=== PATIENT | female | born 1990 | race Caucasian/White ===

== ENCOUNTER 2022-02-07 04:25 | Emergency (ER) | payer BC ==
[~2022-02-07] VITALS: Ht 152.4 cm; Wt 95.5 kg
[~2022-02-07 04:25] MED LIST: ABILIFY5 MG PO; ALEVE 220MG220 MG PO; ANXIETY MED. PO; FASTIN30 MG PO; ORAL CONTRACEPTIVE PO; PRILOSEC 20MG20 MG PO; PROZAC 20MG20 MG PO; SIMPLY SLEEP PO; SPIRONOLACTONE PO
[2022-02-07 04:42] VITALS: BP 132/92; TEMP 98.1
[2022-02-07 06:08] LABS: COLLECTION METHOD CLEAN CATCH
[2022-02-07 06:19] LABS: BASO % 0.4 % (0.0-2.0); EOS # 0.4 K/mm3 (0.0-0.7); EOS % 3.7 % (0.0-4.0); GRAN # 5.5 K/mm3 (1.4-6.5); GRAN % 54.2 % (42.2-75.2); HEMATOCRIT 39.8 % (37.0-47.0); HEMOGLOBIN 13.3 g/dl (12.5-16.0); LYMPH # 3.7 K/mm3 (1.2-3.4); LYMPH % 36.4 % (20.0-51.0); MEAN CELL VOLUME 83 fl (80.0-100.0); MEAN CORPUSCULAR HEMOGLOBIN 28 pg (27-31); MEAN CORPUSCULAR HGB CONC 33 g/dl (33.0-37.0); MEAN PLATELET VOLUME 9.5 fl (7.4-10.4); MONO # 0.5 K/mm3 (0.1-0.6); MONO % 4.9 % (1.7-9.3); PLATELET COUNT 291 K/mm3 (130-400); RED BLOOD COUNT 4.81 M/mm3 (4.10-5.30); REDCELL DISTRIBUTION WIDTH-CV 13.4 % (11.5-14.5)
[2022-02-07 06:29] LABS: MUCOUS Present (NOT PRESENT); URINE BACTERIA None Seen /hpf (NONE SEEN); URINE CALCIUM OXALATE CRYSTAL Present (NOT PRESENT); URINE RBC 20-50 /hpf (0-2)
[2022-02-07 06:39] LABS: ALBUMIN 3.9 gm/dL (3.5-5.0); BILIRUBIN,TOTAL 0.3 mg/dL (0.2-1.2); CALCIUM 9.7 mg/dL (8.4-10.2); CREATININE, serum 0.85 mg/dL (0.57-1.11); POTASSIUM 3.7 mmol/L (3.5-4.5)
[2022-02-07 06:45] LABS: PH 5.5 (5.0-8.5); URINE APPEARANCE Hazy (CLEAR/HAZY); URINE COLOR Yellow (YELLOW); URINE GLUCOSE Negative (NEGATIVE); URINE KETONE Negative (NEGATIVE); URINE PROTEIN(semi-quant) 1+ (NEGATIVE)
[2022-02-07 06:46] LABS: URINE BLOOD 1+ (NEGATIVE); URINE NITRATE Negative (NEGATIVE)
[2022-02-07] MEDS ORDERED: ROXICODONE 55 MG/TAB PO (07:19)
[2022-02-07] MEDS ORDERED: ZOFRAN 4MG T4 MG/TAB PO (07:19)
[2022-02-07] MEDS ORDERED: FLOMAX 0.40.4 MG/CAP PO (07:19)
[2022-02-07 07:45] VITALS: PULSE 78
== END 2022-02-07 07:51 | disposition home or self-care (01) ==
LOC: COL.ER 04:25
PROVIDERS: Emergency Medicine
DX: N13.2 Hydronephrosis with renal and ureteral calculous obstruction (principal); R00.0 Tachycardia, unspecified; F17.200 Nicotine dependence, unspecified, uncomplicated; Z32.02 Encounter for pregnancy test, result negative
CPT/HCPCS: J1885; J2405; J3010; J7030

== ENCOUNTER 2023-02-05 13:17 | Emergency (ER) | payer BC ==
[~2023-02-05] VITALS: Ht 152.4 cm; Wt 90.9 kg
[~2023-02-05 13:17] MED LIST changes: +FLOMAX 0.40.4 MG/CAP PO; +ROXICODONE 55 MG/TAB PO; +ZOFRAN 4MG T4 MG/TAB PO
[2023-02-05 15:19] LABS: COLLECTION METHOD CLEAN CATCH
[2023-02-05 15:38] LABS: URINE APPEARANCE Clear (CLEAR/HAZY); URINE BLOOD Negative (NEGATIVE); URINE COLOR Amber (YELLOW); URINE GLUCOSE Negative (NEGATIVE); URINE KETONE 3+ (NEGATIVE); URINE NITRATE Negative (NEGATIVE); URINE PROTEIN(semi-quant) 1+ (NEGATIVE)
[2023-02-05 15:41] LABS: URINE RBC 0-2 /hpf (0-2)
[2023-02-05 15:42] LABS: MUCOUS Present (NOT PRESENT); URINE BACTERIA Rare /hpf (NONE SEEN)
[2023-02-05] MEDS ORDERED: PROMETHAZINE12.5 M5 PO (16:26)
[2023-02-05 16:37] VITALS: BP 115/77; PULSE 89; TEMP 98.4
== END 2023-02-05 16:37 | disposition home or self-care (01) ==
LOC: COL.ER 13:17
PROVIDERS: Physician Assistant
DX: O21.9 Vomiting of pregnancy, unspecified (principal); O26.892 Other specified pregnancy related conditions, second trimester; R10.30 Lower abdominal pain, unspecified; Z87.891 Personal history of nicotine dependence; Z3A.15 15 weeks gestation of pregnancy
CPT/HCPCS: J2765; J7030

== ENCOUNTER 2023-07-08 21:26 | Outpatient (CLI) | payer BC ==
[~2023-07-08] VITALS: Ht 152.4 cm; Wt 100.0 kg
[~2023-07-08 21:26] MED LIST changes: +PROMETHAZINE12.5 M5 PO
--- NOTE | 2023-07-08 21:45 | NUR ---
PT TO UNIT AMBULATORY WITH SPOUSE WITH COMPLAINTS OF CTX EVERY 2-5 MINUTES. PT TAKEN TO ROOM BY Pedrito LAWS RN. PT CHANGED INTO GOWN. THIS NURSE IN ROOM, VS OBTAINED, EFMX2 APPLIED, AMNIOSWAB NEGATIVE AND NO LEAKING OF FLUID VISUALIZED, PT STATES GOOD MOVEMENT. SVE PERFORMED.
[2023-07-08 22:30] VITALS: BP 130/85; PULSE 80; TEMP 97.9
[2023-07-08 23:00] VITALS: BP 135/85; PULSE 67
[2023-07-08] MEDS ORDERED: TAMIFLU30 MG PO (23:00)
[2023-07-08] MEDS ORDERED: LR 1,000 ML IV PRN (23:00)
[2023-07-08] MEDS ORDERED: ATARAX 25MG25 MG/TAB PO (23:02)
[2023-07-08] MEDS ORDERED: PROTONIX20 MG PO (23:03)
[2023-07-08] MEDS ORDERED: BRINTELLIX5 PO (23:03)
[2023-07-08] MEDS ORDERED: TIROSINT50 MC1 PO (23:04)
[2023-07-08] MEDS ORDERED: VITAMIN D31000 I1 PO (23:05)
[2023-07-08] MEDS ORDERED: ASPIRIN 81M81 MG/TA2 PO (23:06)
[2023-07-08] MEDS ORDERED: PRENATAL TABLET PO (23:07)
[2023-07-08] MEDS ORDERED: ZOFRAN 4MG T4 MG/TAB SL (23:08)
[2023-07-08 23:30] VITALS: BP 137/87; PULSE 75
[2023-07-09] VITALS: BP 132/87; PULSE 87
[2023-07-09 00:30] VITALS: BP 137/94; PULSE 72
[2023-07-09 01:00] VITALS: BP 151/86; PULSE 81
[2023-07-09 01:30] VITALS: BP 137/79; PULSE 85
[2023-07-09 02:00] VITALS: BP 130/82; PULSE 89
[2023-07-09 02:22] VITALS: BP 137/80; PULSE 78
--- NOTE | 2023-07-09 02:35 | NUR ---
0222- SVE UNCHANGED FOR 2 HOURS. MONITORING DC'D. PT TO CHANGE INTO OWN CLOTHES WHILE DISCHARGE PAPERWORK PREPARED. 0235- PT INSTRUCTED TO RETURN TO UNIT IF HER CONTRACTIONS BECOME MORE CONSISTENT/PAINFUL, HER WATER BREAKS, OR SHE HAS VAGINA BLEEDING. NOTIFIED THAT SPOTTING MAY OCCUR DUE TO MULTIPLE SVEs WHILE HERE. ENCOURAGED TO PUSH FLUIDS AND NOTIFIED THAT SHE MAY TRY TYLENOL AND BENADRYL PER BOTTLE INSTRUCTIONS FOR PAIN AND SLEEP AID. MAY ALSO TAKE A WARM SHOWER OR BATH. UNDERSTANDING VERBALIZED. PT STATES THAT SHE HAS APPOINTMENT WITH DR. VILLEGAS LATER TODAY 07/09/23 AT 1420. PT ENCOURAGED TO KEEP THIS APPOINTMENT. PT AND SPOUSE OFF UNIT AMBULATORY.
[2023-07-09] MEDS ORDERED: Influenza Virus Vaccine, Quad '23-24 (6 MOS+) 0.5 ML SYRINGE IM SCH (09:00)
== END 2023-07-09 02:35 | disposition home or self-care (01) ==
LOC: LDRO 21:26
DX: O26.893 Other specified pregnancy related conditions, third trimester (principal); E75.5 Other lipid storage disorders; Z3A.37 37 weeks gestation of pregnancy

== ENCOUNTER 2023-07-17 17:01 | Outpatient (CLI) | payer BC ==
[~2023-07-17] VITALS: Ht 152.4 cm; Wt 99.2 kg
[2023-07-17] VITALS (9 sets, daily range): BP systolic 123–136; BP diastolic 75–93; PULSE 75–98
[~2023-07-17 17:01] MED LIST changes: +ASPIRIN 81M81 MG/TA2 PO; +ATARAX 25MG25 MG/TAB PO; +BRINTELLIX5 PO; +PRENATAL TABLET PO; +PROTONIX20 MG PO; +TAMIFLU30 MG PO; +TIROSINT50 MC1 PO; +VITAMIN D31000 I1 PO; +ZOFRAN 4MG T4 MG/TAB SL
[2023-07-17] MEDS ORDERED: LR 1,000 ML IV PRN (17:15)
[2023-07-17] MEDS ORDERED: LR 1,000 ML IV ONE (17:45)
--- NOTE | 2023-07-17 18:43 | NUR ---
6727 INGRID MUNOZ UPDATED ON PT ARRIVAL, COMPLAINTS, SVE, FHTS, CTX PATTERN, HX. ORDERS FOR LABOR EVAL, IV START AND 1L LR BOLUS. PT MAY HAVE ZOFRAN IF SHE WISHES. MARJORIE SIBLEY
--- NOTE | 2023-07-17 18:44 | NUR ---
1720 PT ARRIVES COMPLAINING OF CTX SINCE 1430. PT STATES SHE WAS 3 CM IN THE OFFICE THIS WEEK. PT STATES SHE HAS BEEN VOMITING "ALL DAY" AND SOMETIMES GETS SPOTS IN VISION WHEN SHE VOMITS. PT DENIES LOF, VB, DFM, OR ANY OTHER COMPLAINTS AT THIS TIME. RN DISCUSSES POC WITH PT AND PT VERBALIZES UNDERSTANDING/HAS NO QUESTIONS AT THIS TIME.
--- NOTE | 2023-07-17 18:58 | NUR ---
DR. QUINTERO ON UNIT. ORDERS RECEIVED FOR THERAPEUTIC REST, 15MG IM MORPHINE AND 12.5MG IM PHENEGAN PER DR. QUINTERO.
--- NOTE | 2023-07-17 19:20 | NUR ---
PT UPDATED ON PLAN OF CARE. EDUCATED ON THERAPEUTIC REST AND MEDICATIONS THAT WILL BE GIVEN. UNDERSTANDING VERBALIZED. AWAITING PHARMACY VERIFICATION OF MEDICATIONS.
[2023-07-17] MEDS ORDERED: Promethazine 25 MG/ML 1 ML VIAL IM ONE (19:30)
[2023-07-17] MEDS ORDERED: Morphine 10 MG/ML VIAL IM ONE ×2 (19:30→21:30)
--- NOTE | 2023-07-17 19:47 | NUR ---
PHENERGAN BACKORDERED. PT STATES THAT SHE WILL VOMIT IF MORPHINE GIVEN WITHOUT ANTIEMETIC. WILL CONTACT DR. QUINTERO FOR DIFFERENT ORDERS.
--- NOTE | 2023-07-17 20:03 | NUR ---
DR. QUINTERO ORDERS ZOFRAN 8MG IV TO BE GIVEN WITH MORPHINE 15MG IM FOR THERAPEUTIC REST.
[2023-07-17] MEDS ORDERED: Ondansetron 4 MG/2 ML VIAL IV ONE (20:15)
[2023-07-17] MEDS ORDERED: LR & Oxytocin 500 ML IV SCH (20:30)
--- NOTE | 2023-07-17 21:20 | NUR ---
APPROXIMATELY 45 MINUTES FOLLOWING ADMINISTRATIN OF IM MORPHINE PT CONTINUES TO COMPLAIN OF PAIN, UNABLE TO SLEEP. PREVIOUS RATED AT 7/10 BUT NOW STATES THAT "IT'S STILL UNCOMFORTABLE. IT'S A WEIRD FEELING LIKE A LOT OF PAIN AT THE TOP OF MY VAGINA." WHEN ASKED TO RATE PAIN PT STATES, " I DON'T KNOW, I'M REALLY BAD AT RATING PAIN, BUT IT'S BETTER THAN BEFORE." WILL CONTACT DR. QUINTERO FOR FURTHER ORDERS.
--- NOTE | 2023-07-17 21:35 | NUR ---
DR. QUINTERO ORDERS FOR 2ND DOSE OF IM MORPHINE 10MG FOR CONTINUED PAIN.
--- NOTE | 2023-07-17 22:27 | NUR ---
221- DR. QUINTERO ON UNIT. UPDATED THAT PT CONTINUES TO COMPLIAN OF PAIN WITH CTXs. 2ND DOSE OF IM MORPHINE GIVEN APPROXIMATELY 10 MINUTES AGO. SVE REMAINS UPCHANGED SINCE ARRIVAL, LAST SVE AT 2200. STRIP REVIEWED BY DR. QUINTERO. ORDERS FOR 50MG VISTARIL IM GIVEN BY DR. QUINTERO. ONCE VISTIRIL GIVEN PT MAY DC HOME WITH INSTRUCTIONS THAT PT MAY TAKE A WARM SHOWER OR BATH ONCE HOME AND TO RETURN TO UNIT IF HER WATER BREAKS, SHE HAS VAGINAL BLEEDING, OR CTXs BECOME MORE CONSISTENT/PAINFUL. 2226- SEE EMAR FOR VISTIRIL ADMINISTRATION. 2227- MONITORING DCd FOLLOWING VISTIRIL ADMINISTRATION. INSTRUCTED PT THAT SHE SHOULD CALL THE UNIT OR [facility] IF SHE HAS QUESTIONS OR CONCERNS. INSTRUCTED TO RETURN TO UNIT IF HER WATER BREAKS, SHE HAS VAGINAL BLEEDING, OR HER CTXs BECOME MORE CONSISTENT/PAINFUL. INSTRUCTED THAT SHE MAY TAKE A WARM BATH OR SHOWER ONCE HOME BUT VISTARIL MAY MAKE HER TIRED. QUESTIONS ENCOURAGED, PT DENIES QUESTIONS AT THIS TIME AND UNDERSTANDING VERBALIZED. PT TO CHANGE INTO CLOTHES WHILE DISCHARGE PAPERWORK PREPARED. WILL BRING WHEELCHAIR FOR DISCHARGE PER PT REQUEST.
--- NOTE | 2023-07-17 22:45 | NUR ---
Discharge instructions reviewed with pt and spouse. Questions invited and answered. Discharged via wheelchair, accompanied by spouse.
== END 2023-07-17 22:50 | disposition home or self-care (01) ==
LOC: LDRO 17:01 → LDR 17:11
DX: O09.513 Supervision of elderly primigravida, third trimester (principal); Z3A.38 38 weeks gestation of pregnancy
CPT/HCPCS: J2270; J2405; J3410; J7120

== ENCOUNTER 2023-07-20 18:47 | Outpatient (CLI) | payer BC ==
[~2023-07-20] VITALS: Ht 152.4 cm; Wt 99.1 kg
[2023-07-20] MEDS ORDERED: LR 1,000 ML IV PRN (19:00)
--- NOTE | 2023-07-20 19:00 | NUR ---
33 YO G8PO AMBULATED TO OBT ACCOMPANIED BY SPOUSE AND UNIT TECH. PT HERE WITH COMPLAINT OF LEAKING FLUID SINCE BETWEEN [id number] THIS MORNING AND CONTRACTIONS THAT HAVE BEEN OCCURING FOR APPROX. 2 WEEKS. PT STATES CTX ARE STILL IRREGULAR BUT PAINFUL. PT DENIES VAG BLEEDING - ENDORSES OCCASIONAL SPOTTING FOLLOWING PREVIOUS SVEs. PT ENDORSES NORMAL MOVEMENT.
[2023-07-20 19:30] VITALS: BP 130/87; PULSE 94; TEMP 97.8
--- NOTE | 2023-07-20 20:35 | NUR ---
WRITTEN AND VERBAL DISCHARGE INSTRUCTIONS PROVIDED TO PT AND SPOUSE. PT VERBALIZES UNDERSTANDING AND DENIES QUESTIONS/CONCERNS AT THIS TIME. PT AMBULATED OFF UNIT ACCOMPANIED BY SPOUSE. PT STABLE AT TIME OF DC.
[2023-07-23] MEDS ORDERED: PERCOCET 325 MG1 TA2 PO (07:34)
[2023-07-23] MEDS ORDERED: IBU800 M1 PO (07:34)
== END 2023-07-20 20:35 | disposition home or self-care (01) ==
LOC: LDRO 18:47
DX: O42.92 Full-term premature rupture of membranes, unspecified as to length of time between rupture and onset of labor (principal); Z3A.38 38 weeks gestation of pregnancy